=== PATIENT | male | born 1995 | race Caucasian/White ===

== ENCOUNTER 2018-07-04 20:47 | Emergency (ER) | payer OTHER, SELFPAY ==
--- NOTE | 2018-07-04 21:21 | CT ---
CT OF HEAD NONCONTRAST: 07/04/18 INDICATION: Head injury with pain. FINDINGS: There is no evidence of intracranial hemorrhage, mass effect, midline shift or ventriculomegaly. The calvarium is intact. IMPRESSION: No acute intracranial abnormalities. POS: [facility]
[2018-07-04] MEDS ORDERED: Ketorolac Tromethamine 60 MG/2 ML VIAL ONE (21:42)
== END 2018-07-04 22:00 | disposition home or self-care (01) ==
LOC: SCSER 20:47
DX: S09.90XA Unspecified injury of head, initial encounter (principal); S76.311A Strain of muscle, fascia and tendon of the posterior muscle group at thigh level, right thigh, initial encounter; X58.XXXA Exposure to other specified factors, initial encounter; Y93.62 Activity, american flag or touch football
CPT/HCPCS: 70450; 96372; J1885